=== PATIENT | female | born 1930 | race Caucasian/White ===

== ENCOUNTER 2017-12-14 13:13 | Emergency (ER) | payer MEDICARE ==
[~2017-12-14] VITALS: Ht 185.4 cm; Wt 70.0 kg
[~2017-12-14 13:13] MED LIST: ASPI1TAB57 PO; FERR325T PO; LEVO50TA4 PO; LOPE7.5C PO; LOSA25TA PO; METO50TA PO; OMEP10SU; PRAV20TA2 PO; VITA500030 CHEW
[2017-12-14 13:23] VITALS: BP 141/60; PULSE 76; RESP 18; TEMP 96; O2SAT 94
[2017-12-14 13:39] VITALS: BP 139/63; PULSE 65; RESP 18; O2SAT 99
[2017-12-14] MEDS ORDERED: VITA100064 PO (13:42)
[2017-12-14] MEDS ORDERED: LOSA25TA PO (13:42)
[2017-12-14] MEDS ORDERED: FURO20TA PO (13:42)
[2017-12-14] MEDS ORDERED: LOPE-1 PO (13:43)
[2017-12-14] MEDS ORDERED: PRIL20TA2 (13:43)
--- NOTE | 2017-12-14 14:52 | PD ---
HPI . Bilateral lower extremity redness Chief Complaint: Skin Problem Time Seen by Provider: 14:01 Travel History International Travel<30 days: No Contact w/Intl Traveler<30days: No Traveled to known affect area: No History of Present Illness HPI This elderly patient is brought in by her elderly with the chief complaint of leg wounds. Onset was 6 months to a year ago. The patient has been followed in the wound care clinic in the past for similar problems. There are no modifying factors. Symptoms are mild. She denies any associated fevers or nausea. 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 Not to exceed 8 tablets per day. Prilosec (Omeprazole Magnesium) Unknown Strength Tab Unknown Dose Vitamin D3 (Cholecalciferol) 1,000 Unit Tab 1,000 Units PO DAILY Furosemide 20 Mg Tab 20 Mg PO DAILY Losartan (Losartan Potassium) 25 Mg Tab 12.5 Mg PO DAILY Pravastatin 20 Mg Tab 20 Mg PO DAILY Metoprolol Tartrate 50 Mg Tab 50 Mg PO DAILY Aspirin 81 (Aspirin) 81 Mg Tabdr 81 Mg PO DAILY Levothyroxine (Levothyroxine Sodium) 50 Mcg Tab 50 Mcg PO DAILY Review of Systems Except as stated in HPI: all other systems reviewed are Neg Physical Exam Narrative GENERAL: Awake and alert and in no acute distress. SKIN: Warm and dry. The skin of her lower extremities is very dry and flaky. I do not see any evidence of infection to the left lower extremity. That is there is no redness or drainage. The right lower extremity does have some mild erythema with some associated skin breakdown. The breakdown is limited to the epidermal layer. HEAD: Normocephalic/atraumatic. EYES: Pupils are equal. Extraocular movements are intact. NECK: Normal range of motion. CARDIOVASCULAR: Regular rate and rhythm. RESPIRATORY: Nonlabored respirations. MUSCULOSKELETAL: Atraumatic. NEUROLOGICAL: Nonfocal. PSYCHIATRIC: Appropriate mood and affect. Data Data Last Documented VS Vital Signs Date Time Temp Pulse Resp B/P (MAP) Pulse Ox O2 Delivery O2 Flow Rate FiO2 12/14/17 13:39 65 18 139/63 (88) 99 Room Air 12/14/17 13:23 96.0 Orders Orders Ed Discharge Order (12/14/17 14:49) MDM Medical Decision Making Medical Screen Exam Complete: Yes Emergency Medical Condition: Yes Medical Record Reviewed: Yes (The patient has been treated in the past at the wound care clinic. That has been almost a year ago.) Differential Diagnosis My differential diagnosis includes but is not limited to localized wound infection, cellulitis, abscess Narrative Course This patient presents with some skin breakdown of her right lower extremity. I suspect that it is secondary to peripheral vascular disease. She has dry skin on the left lower extremity but no skin breakdown and no redness. After much discussion with the nursing staff, we decided to wrap her legs with Xeroform. This is to be left in place until she can see the wound care doctor hopefully on Saturday. Diagnosis Primary Impression: Bilateral leg ulcer Qualified Codes: L97.911 - Non-pressure chronic ulcer of unspecified part of right lower leg limited to breakdown of skin; L97.921 - Non-pressure chronic ulcer of unspecified part of left lower leg limited to breakdown of skin Patient Instructions: General Instructions Departure Forms: Tests/Procedures Additional Instructions: Follow-up with the wound clinic Disposition: 01 DISCHARGE HOME Condition: Stable Jaymie Reddy MD December 14, 2017 14:52
== END 2017-12-14 14:55 | disposition home or self-care (01) ==
LOC: NEPC 13:13
DX: L97.911 Non-pressure chronic ulcer of unspecified part of right lower leg limited to breakdown of skin (principal); L97.921 Non-pressure chronic ulcer of unspecified part of left lower leg limited to breakdown of skin; K21.9 Gastro-esophageal reflux disease without esophagitis; I10 Essential (primary) hypertension
CPT/HCPCS: 99281